=== PATIENT | female | born 1950 | race Caucasian/White ===

== ENCOUNTER 2025-06-29 15:06 | Outpatient (AMB) | payer MEDICARE, SELFPAY ==
--- OUTSIDE RECORDS SUMMARY | 2016-04-01 04:09 | XMS_ITS | Continuity of Care Document ---
Author Organization [facility] Address [address] [place] [address] Phone Care Team Providers Care Ophthalmic Surgeon Name Role Phone Tracy Law MD, Sarita Unavailable Unava ilable Allergies, Adverse Reactions, Alerts Substance Reaction Status Criticality No Known Allergies Active No Inform ation Medications Medication Instructions Dosage Effective Dates (start - stop) Status Comments Lidoderm 5 % (700 mg/patch) adhesive patch apply 1 patch by transdermal route every day (May wear up to 12hours.) 1.00 patch - Active hydrocodone 7.5 mg-acetaminophen 325 mg tablet take 1 tablet by ORAL route every 6 hours as needed for pain 1 tablet - Active Medrol (Colin) 4 mg tablets in a dose pack take by Oral route taper over 6 days Not Available - Active levothyroxine 50 mcg tablet take 1 tablet by oral route every day 50 MCG - Active fluoxetine 20 mg tablet take 1 tablet by oral route every day in the morning 20 MG - Active simvastatin 10 mg tablet take 1 tablet by oral route every day in the evening 10 MG - Active Procedures Procedure Date Offic/outpt E&m Estab Low-mod 5 Mri Lumbar Wo Then W/contrast; 15 Harshad-base MR contrast NOS,1ml Prohance Rad Exam Spine Lumbosacral; W/ 15 Offic/outpt E&m New Mod Sever 5 Advance Directives Directive Yes / No Effective Date File Name No Information Encounters Encounter Description Practice Location Reason(s) For Visit Diagnoses Date Provider Providers Copied on Encounter [facility], [address] [address], [place], [place], [id number], [place] tel:[phone] [facility] No Information 6 Tracy Thanh Sarita. [address], [place], [place], [id number], [place]. tel:[phone] Offic/outpt E&m Estab Low-mod [facility], [address] [address], [place], [place], [id number], [place] tel:[phone] [facility] lumbar spine pain (chief complaint) Low back painDDD (degenerative disc disease), lumbarHistory of lumbar fusion 8 5 Tracy Thanh Sarita. [address], [place], [place], [id number], [place]. tel:[phone] Referring Provider: Sarita Law, [address], [place], [address] . tel:[phone] [facility], [address], [id number], [place] tel:[phone] [facility] No Information 5 Tracy Thanh Sarita. [address], [place], [place], [address], [place]. tel:[phone] Referring Provider: Sarita Law, [address], [place], [address] . tel:[phone] Offic/outpt E&m New Mod Sever [facility], [address] [address], [place], [place], [id number], [place] tel:[phone] [facility] lumbar spine pain (chief complaint) Low back painDDD (degenerative disc disease), lumbarHistory of lumbar fusion Feb0 3-201 5 Tracy Thanh Sarita. [address], [place], [place], [id number], [place]. tel:[phone] Referring Provider: Sarita Law, [address] , [place], [address] . tel:[phone] Family History Family Member Type Diagnosis Age At Onset Father Problem (finding) Arthritis Mother Problem (finding) osteoporosis Mother Problem (finding) depression Mother Problem (finding) Arthritis Payers Payer name Insurance type Covered alliance party ID [place]) Medicare Part B [id number] [facility] [id number] Social History Type Description Quantity Date Captured Comments Sex Female Smoking Status No Information Chief Complaint And Reason For Visit No Information Reason For Referral Reason For Referral No Information Plan Of Treatment Date Type Action Status Referral Ordered: Mri Lumbar Wo Then W/contrast; Appointment date/timeframe: 11/10/2014 ordered Referral Ordered: Rad Exam Spine Lumbosacral; W/ ordered History Of Present Illness Encounter Date Complaint History Of Prese nt Illness lumbar spine pain This 64 year o ld female presents for lumbar spine pain. She is here to discuss test results on her MRI. Severity level is 7. The problem is fluctuating. It occurs persistently. Location of pain is lower back. Pain is radiated to the right hip.The patient describes the pain as an ache and sharp. Context: no injury. Symptoms are aggravated by daily activities, sitting and walking. Symptoms are relieved by over the counter medication: ibuprofen and pain meds/drugs. Additional information: Patient does report some numbness in the right lower extremity off/on. Patient is wanting Hydrocodone refilled today. lumbar spine pain This 64 year o ld female presents for lumbar spine pain. Onset: 1 week ago. Severity level is 7. The problem is worsening. It occurs persistently. Location of pain is lower back.There is no radiation of pain. The patient describes the pain as an ache and sharp. Context: no injury. Symptoms are aggravated by daily activities, sitting and walking. Symptoms are relieved by over the counter medication: ibuprofen. Additional information: Patient has had issues with her back in the past. She had surgery done in 2008 where they put pins in her lumbar spine. She has not had any treatment or imaging since 2008 after surgery. She currently on takes OTC medicatios for her pain, which is not helping. She denies any numbness or tingling. Functional Status Date Functional Assessmen t No Information Instructions Date Instruction Additional Infor mation No Information Assessments Type Assessment Date No Information Patient Care Teams Name Effective Dates (start - stop) Status Members No Information
--- NOTE | 2025-06-29 15:17 | A.OFFPC_ITS ---
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: No Accompanied by: Self / Same As Patient Allergies No Known Allergies Allergy (Verified 06/29/25 15:19) Tobacco use date assessed: 06/29/25 Fall risk assessment: No Falls in past year Last assessed Fall Risk: 06/29/25 Dental Screening Dental Screen Date: 06/29/25 Did you have a dental visit in the last 12 months?: Yes Did you have a dental problem in the last 6 months where you did not have access to dental care?: No Was dental information given to patient?: Patient has dentist HPI HPI Comments History of Present Illness Details History of Present Illness The patient is a 75-year-old female presenting with elevated blood pressure and concerns about obstructive sleep apnea. Essential Hypertension: - The patient has a history of low blood pressure, but recently noticed elevated readings in the 140s and 150s mmHg, starting about two months ago. - No associated symptoms such as chest p ain, headaches, nausea, vomiting, or dizziness were reported. - The patient is concerned about the imp act of aripiprazole on blood pressure. Obstructive Sleep Apnea: - The patient reports snoring, waking up with difficulty breathing, and feeling fatigued during the day. - A home sleep study has been planned to confirm the diagnosis. Depression: - The patient is currently taking aripip razole for depression and anxiety but has not seen a therapist in three years. - The patient previously took fluoxetine but switched due to ineffectiveness. Hypothyroidism: - The patient is on levothyroxine therap y, and thyroid function tests are planned to ensure adequate control. Review of Systems - Cardiovascular: Denies chest pain, hea daches, nausea, vomiting, dizziness. - Respiratory: Reports snoring, difficul ty breathing upon waking, and daytime fatigue. 10-point ROS reviewed and negative excep t as noted in HPI Past Medical History - Depression, treated with aripiprazole. - Hypothyroidism, treated with levothyro xine. Health Maintenance - Pneumococcal vaccination discussed for preventative care. - Home sleep study planned for obstructi ve sleep apnea evaluation. Physical Exam General: Well-appearing, in no acute distress. Vital signs: Blood pressure noted to be elevated at 146/86. HEENT: Normocephalic, atraumatic. PERRLA, EOMI. Conjunctiva clear, sclera anicteric. Oropharynx clear, mucous membranes moist. TMs intact bilaterally. Neck: Supple, no lymphadenopathy, no thyromegaly, no JVD or carotid bruits. Cardiovascular: RRR, normal S1/S2, no murmurs, rubs, or gallops. Peripheral pulses 2+ and symmetric. No edema. Respiratory: Lungs clear to auscultation bilaterally, no wheezes, rales, or rhonchi. Normal effort. Abdomen: Soft, non-tender, non-distended. Normoactive bowel sounds. No hepato splenomegaly, no masses. MSK: Full range of motion, no joint swelling or deformity. Normal gait. Skin: Warm, dry, intact. No rashes, lesions, or pallor. [place] complexion noted. Neuro: Alert and oriented x3. Cranial nerves II-XII intact. Strength 5/5 throughout. Sensation intact. Reflexes 2+ symmetric. Normal coordination and gait. Psych: Appropriate mood and affect. Normal judgment and insight. Reports taking aripiprazole for depression and anxiety. Plan 1. Essential Hypertension - Plan to monitor blood pressure closely and consider medication adjustment if necessary. - Blood work including CBC, comprehensiv e metabolic panel, and thyroid function tests ordered to assess overall health and potential contributing factors. 2. Obstructive Sleep Apnea - Home sleep study arranged to confirm d iagnosis and assess severity. - Referral to seo specialist for further management if sleep study is positive. 3. Depression - Consideration of alternative medicatio ns due to potential impact of aripiprazole on blood pressure. - Referral to a therapist for counseling and further management of depression and anxiety. 4. Hypothyroidism - Thyroid function tests ordered to ensu re adequate control with current levothyroxine therapy. Discussion Notes I discussed with the patient the likelihood of obstructive sleep apnea and the need for a home sleep study to confirm the diagnosis. We also talked about the potential impact of aripiprazole on blood pressure and the possibility of adjusting medications. I recommended follow-up appointments to monitor blood pressure and review test results. The patient was informed about the referral process for a seo specialist if the sleep study is positive. Patient was informed and verbally consented to the use of an ambient scribe for clinic note documentation during this visit. Patient Instructions - Monitor your blood pressure regularly and keep a log of the readings. - Complete the home sleep study as sched uled and await further instructions based on the results. - Follow up with the therapist for couns eling sessions. - Attend follow-up appointments to [facility] blood pressure management and review test results. [facility] Medical History (Updated 06/29/25 @ 15:37 by Armando Jean MD) Fatigue Family History (Updated 06/29/25 @ 15:22 by Abebe Miranda MA) Father No problems noted. Mother No problems noted. Social History (Updated 06/29/25 @ 15:23 by Abebe Miranda MA) Housing: House Alcohol intake: current Alcohol intake frequency: does not drink Patient Tobacco Use Status: Never used Tobacco service: No Current occupational status: retired Cognitive needs: No Hearing needs: No Vision needs: Yes (rs glasses) Questionnaire PHQ-9 Over the last 2 weeks, how often have you been bothered by any of the following problems? 1. Little interest or pleasure in doing things: not at all 2. Feeling down, depressed, or hopeless: not at all 3. Trouble falling or staying asleep, or sleeping too much: several days 4. Feeling tired or having little energy: several days 5. Poor appetite or overeating: not at all 6. Feeling bad about yourself - or that you are a failure or have let yourself or your family down: not at all 7. Trouble concentrating on things, such as reading the newspaper or watching television: not at all 8. Moving or speaking so slowly that other people could have noticed. Or the opposite - being so fidgety or restless that you have been moving around a lot more than usual: several days 9. Thoughts that you would be better off or of hurting yourself in some way: not at all Total score: 3 Depression Screening Interpretation: Negative Depression Screening Done: Yes Source: Developed by Drs. Shubham Burgos, Hansa Garza, Toy Dutta and colleagues, with an educational mario from [employer]. Thrive Questionnaire Date Thrive assessed: 06/29/25 I am a: Patient What is your living situation today?: I have a steady place to live Within the past 12 months, did the food you bought not last and you didn't have the money to get more?: Never true Within the past 12 months, did you worry whether your food would run out before you got money to buy more?: Never true Do you have trouble paying for medicines?: No Do you have trouble getting transportation to medical appointments?: No Do you have trouble paying your heating and electricity bill?: No Do you have trouble taking care of your child, family member or friend?: No Are you currently unemployed and looking for a job?: No Are you interested in more education?: No Please select the resources that you would like help with: None Currently or been in a relationship where the following occur: No concerns reported THRIVE Score: 0 AUDIT C Alcohol Use Questionnaire (AUDIT-C) 1. How often do you have a drink containing alcohol?: Never 3. How often do you have six or more drinks on one occasion?: Never Total Score: 0 SILVANO-7 AMB Questionnaire SILVANO-7 Date SILVANO - 7 assessed: 06/29/25 Feeling nervous, anxious, or on edge: 1 = Several days Not being able to stop or control worryin = Not at all Worrying too much about different things: 1 = Several days Trouble relaxin = Several days Being so restless that it is hard to sit still: 1 = Several days Becoming easily annoyed or irritable: 1 = Several days Feeling afraid as if something awful might happen: 1 = Several days Total SILVANO-7 score (0-4 normal; 5-9 mild; 10-14 moderate; 15-21 severe): 6 Source: Developed by Drs. Shubham Burgos, Hansa Garza, Toy Dutta and colleagues, with an educational mario from [employer]. Physical exam (Primary Care) Vital Signs: Last Vital Signs Temp 97.9 F 06/29/25 15:18 Pulse 77 06/29/25 15:18 Resp 16 06/29/25 15:18 BP 146/86 H 06/29/25 15:18 Pulse Ox 98 06/29/25 15:18 Oxygen Delivery Method Room Air 06/29/25 15:18 BMI result Body Mass Index 20.4 Tobacco/Smoking Status: Tobacco use Status Tobacco use date assessed 06/29/25 06/29/25 15:27 Patient Tobacco Use Status Never used Tobacco 06/29/25 15:27 PHQ-9: PHQ-9 Score PHQ-9: Total score 3 06/29/25 15:27 Depression Screening Interpretation: Negative Thrive Assessment: Date of Thrive Assessment Date Thrive assessed 06/29/25 06/29/25 15:27 Currently or been in a relationship where the following occur: No concerns reported Coding Level of Care Code New Pt Level 3 (19209) Diagnoses Encounter to establish care with new provider Z76.89 Encounter for screening, unspecified Z13.9 Counseling, unspecified Z71.9 Acquired hypothyroidism E03.9 Hypothyroidism type: acquired Elevated blood pressure reading R03.0 Snoring R06.83 Fatigue R53.83 Assessment & Plan Assessment & Plan (1) Encounter to establish care with new provider: Code(s): Z76.89 - Persons encountering health services in other specified circumstances (2) Encounter for screening, unspecified: Code(s): Z13.9 - Encounter for screening, unspecified (3) Counseling, unspecified: Code(s): Z71.9 - Counseling, unspecified (4) Hypothyroid: Code(s): E03.9 - Hypothyroidism, unspecified Qualifiers: Hypothyroidism type: acquired Qualified Code(s): E03.9 - Hypothyroidism, unspecified (5) Elevated blood pressure reading: Code(s): R03.0 - Elevated blood-pressure reading, without diagnosis of hypertension (6) Snoring: Code(s): R06.83 - Snoring (7) Fatigue: Code(s): R53.83 - Other fatigue Category: Medical Plan Orders: Orders Comprehensive Met. Panel Today Z13.9 - Encounter for screening, unspecified, Z76.89 - Persons encountering health services in other specified circumstances Hepatitis B Surface Antibody Today Z13.9 - Encounter for screening, unspecified, Z76.89 - Persons encountering health services in other specified circumstances Hepatitis C Antibody Today Z13.9 - Encounter for screening, unspecified, Z76.89 - Persons encountering health services in other specified circumstances Lipid Panel Today Z13.9 - Encounter for screening, unspecified, Z76.89 - Persons encountering health services in other specified circumstances Vitamin D 1,25 dihydroxy Today Z13.9 - Encounter for screening, unspecified, Z76.89 - Persons encountering health services in other specified circumstances Complete Blood Count Auto Diff Today Z13.9 - Encounter for screening, unspecified, Z76.89 - Persons encountering health services in other specified circumstances Hemoglobin A1c Today Z13.9 - Encounter for screening, unspecified, Z76.89 - Persons encountering health services in other specified circumstances Hepatitis B Surface Antigen Today Z13.9 - Encounter for screening, unspecified, Z76.89 - Persons encountering health services in other specified circumstances HIV Ab/Ag Today Z13.9 - Encounter for screening, unspecified, Z76.89 - Persons encountering health services in other specified circumstances UA CC w/rflx Micro + Cult Today Z13.9 - Encounter for screening, unspecified, Z76.89 - Persons encountering health services in other specified circumstances Vitamin B12 and Folate Today Z13.9 - Encounter for screening, unspecified, Z76.89 - Persons encountering health services in other specified circumstances TSH reflex Free T4 Today Z13.9 - Encounter for screening, unspecified, Z76.89 - Persons encountering health services in other specified circumstances RT home sleep study Today R06.83 - Snoring, R53.83 - Other fatigue Referrals Behavioral Health Referral F41.8 - Other specified anxiety disorders
[2025-06-29 15:18] VITALS: BP 146/86; PULSE 77; RESP 16; TEMP 36.6; O2SAT 98; BMI 20.4
--- OUTSIDE RECORDS SUMMARY | 2025-06-29 17:36 | XMS_ITS | Clinical Summary ---
Author Organization [facility] Address [address] [place] [address] Care Team Providers Care Healthcare Science Specialist Name Role Phone Mady Morel Primary Care Provider [phone] Allergies No known active allergies Medications * This document contains information received from the source organization and may not represent a complete record from that organization. FLUoxetine (PROzac) 40 MG Oral Capsule Take 2 (two) capsules by mouth daily for 90 days. 180 capsule 2 Active QUEtiapine (SEROquel) 25 MG Oral TabletIndication s:Mixed obsessional thoughts and acts Take 2 (two) tablets by mouth in the morning and 2 (two) tablets before bedtime. Take two tablets in the morning and two tablets. 120 tablet 2 2 Active Active Problems Problem Noted Date Diagnosed Date Mixed obsessional thoughts and acts 08/23/2019 Social History Tobacco Use Types Packs/Day Years Used Date Smoking Tobacco: Never Assessed Comments Unknown Sex and Gender Information Value Date Recorded Sex Assigned at Female 01/19/2021 12:45 PM EDT Legal Sex Female 10:42 AM EST Gender Identity Female 04/17/2020 3:20 PM EDT Sexual Orientation Not on file Last Filed Vital Signs Vital Sign Reading Time Taken Comments Blood Pressure 106/70 11/11/2018 11:20 AM EST Pulse 91 11/11/2018 11:20 AM EST Temperature - - Respiratory Rate - - Oxygen Saturation - - Inhaled Oxygen Concentration - - Weight 57.2 kg (126 lb) 02/08/2019 10:33 AM EDT Height 160 cm (5' 3 ) 02/08/2019 10:33 AM EDT Body Mass Index 22.32 02/08/2019 10:33 AM EDT Plan of Treatment Health Maintenance Due Date Last Done Comments Hepatitis C Screening 1950 DTaP,Tdap,and Td Vaccines (1 - Tdap) 1967 Lipid Profile 1993 Pneumococcal Vaccine (50+ yrs) (1 of 1 - PCV) 1998 Zoster Vaccine (1 of 2) 1998 Dexa 2013 Medicare Initial AWV [id number] 05/07/2014 RSV Vaccine (1 - 1-dose 75+ series) 2023 Influenza Vaccine (#1) 2025 , 10/22/2021, 07/31/2021, Additional history exists SARS-CoV-2 (COVID-19) (2024- season) 2025 07/23/2022, 01/02/2022, 07/31/2021, Additional history exists HIB Vaccine Aged Out No longer eligi ble based on patient's age to complete this topic HPV Vaccine Aged Out No longer eligi ble based on patient's age to complete this topic Hepatitis A Vaccine Aged Out No longe r eligible based on patient's age to complete this topic Hepatitis B Vaccine Aged Out No longe r eligible based on patient's age to complete this topic Meningococcal ACWY Aged Out No longer eligible based on patient's age to complete this topic Meningococcal B Aged Out No longer el igible based on patient's age to complete this topic Polio Vaccine Aged Out No longer elig ible based on patient's age to complete this topic Rotavirus Vaccine Aged Out No longer eligible based on patient's age to complete this topic [place] [id number] [facility] [employer] Care Teams Healthcare Science Specialist Relationship Specialty Start Date End Date Mady Morel PCP - General Family Medicine 09/08/17
== END 2025-06-29 15:49 | disposition home or self-care (01) ==
LOC: HO.HMCFMS 15:07
PROVIDERS: Visit Provider Student in an Organized Health Care Education/Training Program
DX: E03.9 Hypothyroidism, unspecified (principal); R03.0 Elevated blood-pressure reading, without diagnosis of hypertension; R06.83 Snoring; R53.83 Other fatigue

== ENCOUNTER 2025-06-29 15:06 | Outpatient (REF) | payer MEDICARE, SELFPAY ==
[2025-06-29 18:26] LABS: Appearance Urine Clear; Glucose Urine UA Negative (Negative); PH 7.0 (5.0-9.0); Specific Gravity - Urine 1.010 (1.005-1.025); UMIC TRIGGER UACC YES
[2025-06-29 18:28] LABS: Hematocrit 36.8 % (37.0-47.0); Hemoglobin 12.5 g/dl (12.0-16.0); Imm Gran Abs Auto 0.03 X10*3/uL (0.00-0.03); Imm Gran Pct Auto 0.3 % (0.0-0.4); Lymphocytes Absolute Auto 5.1 X10*3/uL (1.2-4.9); MANUAL DIFF FLAG SCAN; Mean Corpuscular HGB Conc 34.0 g/dl (31.0-35.0); Mean Corpuscular Hemoglobin 29.8 pg (27.0-33.0); Mean Corpuscular Volume 87.6 fL (80.0-98.0); NRBC Abs Auto 0.000 X10*3/uL (0.0-0.012); NRBC Pct Auto 0.0 /100WBC (0.0-0.2); Platelet Count 265 X10*3/uL (160-400); Red Blood Count 4.20 X10*6/uL (4.20-5.50); SCAN SMEAR FLAG 1; White Blood Count 10.9 X10*3/uL (4.8-10.8)
[2025-06-29 19:16] LABS: Alanine Aminotransferase 26 U/L (0-31); Albumin Level 4.8 g/dL (3.5-5.0); Alkaline Phosphatase 75 U/L (39-117); Anion Gap 13 (12-20); Aspartate Amino Transferase 28 U/L (5-31); Blood Urea Nitrogen 8 mg/dL (9-16); Calcium 9.7 mg/dL (8.4-10.2); Carbon Dioxide 27 mmol/L (22-29); Chloride 98 mmol/L (96-108); Cholesterol 225 mg/dL (<200); Estimated Glomerular Filt Rate > 60; HDL Cholesterol 83 mg/dL (>40); Potassium 4.5 mmol/L (3.3-5.1); Sodium 133 mmol/L (135-145); Total Protein 6.9 g/dL (6.5-8.0); Triglycerides 73 mg/dL (<150)
[2025-06-29 19:50] LABS: Folate 18.7 ng/mL (> or = 4.0); Vitamin B12 575 pg/mL (200-900)
[2025-06-30 04:55] LABS: HBS Num1 0.39 mIU/mL (0-7.99); HBsAGNum1 0.30 S/CO (0.00-0.99); HIV Num 1 0.05 S/CO (0.00-0.99); Hepatitis B Surface Antigen Negative (Negative); ~HepC Num1 0.05 S/CO (0.00-0.79); ~Hepatitis B Surface Antibody NONREACTIVE (Nonreactive); ~Hepatitis C Antibody Nonreactive (Nonreactive)
[2025-06-30 05:26] LABS: Total Hemoglobin (HGBA1C) 3285.0317 umol/L
[2025-07-04 18:08] LABS: VITAMIN D (1,25 OH) D3 50 pg/mL; Vit D (1,25-Dihydroxy) Total 50 pg/mL (18-72); Vitamin D (1,25 OH) D2 <8 pg/mL
== END 2025-06-29 15:07 | disposition home or self-care (01) ==
LOC: HO.HKASLDS 15:06
PROVIDERS: Visit Provider Student in an Organized Health Care Education/Training Program
DX: Z76.89 Persons encountering health services in other specified circumstances (principal); R06.83 Snoring; Z11.4 Encounter for screening for human immunodeficiency virus [HIV]; Z13.1 Encounter for screening for diabetes mellitus; R53.83 Other fatigue; F41.8 Other specified anxiety disorders; E03.9 Hypothyroidism, unspecified; R03.0 Elevated blood-pressure reading, without diagnosis of hypertension
CPT/HCPCS: 36415; 80053; 80061; 81001; 82607; 82652; 82746; 83036; 84443; 85025; 86706; 86803; 87340; 87389; 99202

== ENCOUNTER 2025-07-14 08:12 | Outpatient (AMB) | payer MEDICARE, SELFPAY ==
--- NOTE | 2025-07-14 08:14 | A.OFFPC_ITS ---
Vital Signs 07/14/25 08:15 Height 5 ft 2.99 in Weight 115 lb BMI 20.4 BP 137/66 Blood Pressure Location Rt brachial Position Sitting Respiration 16 Pulse 66 Pulse Source Pulse Oximeter Temp 97.5 F Temp Source Oral Pulse Oximetry (%) 98 Oxygen Delivery Method Room Air Intake Visit Reasons: 2 wk f/u Intake Note: high BP [employer] Required: No Accompanied by: Self / Same As Patient Allergies No Known Allergies Allergy (Verified 07/14/25 08:15) Tobacco use date assessed: 06/29/25 Fall risk assessment: No Falls in past year Last assessed Fall Risk: 06/29/25 Dental Screening Dental Screen Date: 06/29/25 Did you have a dental visit in the last 12 months?: Yes Did you have a dental problem in the last 6 months where you did not have access to dental care?: No Was dental information given to patient?: Patient has dentist HPI HPI Comments History of Present Illness Details History of Present Illness The patient is a 75-year-old female presenting with concerns about obstructive sleep apnea and elevated blood pressure. Obstructive Sleep Apnea: - The patient has a history of obstructi ve sleep apnea, with a home sleep study ordered but not yet conducted. - She experiences insomnia, waking up fo r hours at night, and has been using melatonin 10 mg for management. - Her is concerned due to episod es of apnea during sleep. Hypertension: - The patient has a history of low blood pressure but has recently noted elevated readings, with occasional spikes over 150 mmHg, likely related to stress. - She is not currently on antihypertensi ve medication and manages her blood pressure through relaxation techniques. - A blood pressure log has been recommen ded to monitor fluctuations. Hypothyroidism: - The patient is on levothyroxine for hy pothyroidism, with recent lab results indicating stable thyroid function. Prediabetes: - The patient's hemoglobin A1c is 5.7%, indicating prediabetes. - She has been advised to monitor carboh ydrate and sugar intake to manage her blood glucose levels. Hyperlipidemia: - The patient has elevated cholesterol l evels, with total cholesterol at 225 mg/dL and LDL at 128 mg/dL. - A referral to a electric motor assembler has been made to address dietary modifications. Dermatitis: - The patient reports redness and drynes s under her nose, likely due to dermatitis, and has been prescribed hydrocortisone for management. Review of Systems - Cardiovascular: Reports elevated blood pressure readings occasionally exceeding 150 mmHg. Denies chest pain or palpitations. - Respiratory: Reports insomnia and epis odes of apnea during sleep. Denies cough or wheezing. - Endocrine: Reports stable thyroid func tion on levothyroxine. Denies symptoms of hyperthyroidism. - Dermatological: Reports redness and dr yness under the nose, likely dermatitis. - Genitourinary: Reports irritation and trace blood in urine. Denies dysuria or frequency. 10-point ROS reviewed and negative excep t as noted in HPI Past Medical History - Obstructive Sleep Apnea - Hypertension - Hypothyroidism - Prediabetes - Hyperlipidemia Health Maintenance - Vaccination review for travel to [facility], including consideration of hepatitis A vaccination. - Dietary modifications recommended for hyperlipidemia management. - Monitoring of blood pressure with a [facility] log for hypertension management. Physical Exam General: Well-appearing, in no acute distress. Vital signs: Blood pressure 137/66. HEENT: Normocephalic, atraumatic. PERRLA, EOMI. Conjunctiva clear, sclera anicteric. Oropharynx clear, mucous membranes moist. TMs intact bilaterally. Noted redness and dryness under the nose, likely due to dermatitis or allergies. Neck: Supple, no lymphadenopathy, no thyromegaly, no JVD or carotid bruits. Cardiovascular: RRR, normal S1/S2, no murmurs, rubs, or gallops. Peripheral pulses 2+ and symmetric. No edema. Respiratory: Lungs clear to auscultation bilaterally, no wheezes, rales, or rhonchi. Normal effort. Abdomen: Soft, non-tender, non-distended. Normoactive bowel sounds. No hepatosplenomegaly, no masses. MSK: Full range of motion, no joint swelling or deformity. Normal gait. Skin: Warm, dry, intact. No rashes, lesions, or pallor. Neuro: Alert and oriented x3. Cranial nerves II-XII intact. Strength 5/5 throughout. Sensation intact. Reflexes 2+ symmetric. Normal coordination and gait. Psych: Appropriate mood and affect. Normal judgment and insight. Plan 1. Obstructive Sleep Apnea - A home sleep study has been ordered to confirm the diagnosis of obstructive sleep apnea. - The patient is advised to continue usi ng melatonin for insomnia management. 2. Hypertension - The patient is advised to monitor bloo d pressure at home and maintain a log for two weeks. - Relaxation techniques are recommended to manage stress-induced blood pressure spikes. 3. Hypothyroidism - Continue current levothyroxine dosage as thyroid function is stable. 4. Prediabetes - The patient is advised to monitor carb ohydrate and sugar intake to manage blood glucose levels. 5. Hyperlipidemia - Referral to a electric motor assembler for dietary modifications to manage elevated cholesterol levels. 6. Dermatitis - Prescribed hydrocortisone for nasal de rmatitis, to be used for seven days. Discussion Notes I discussed with the patient the importance of conducting a home sleep study to confirm obstructive sleep apnea and advised continuing melatonin for insomnia management. We reviewed her blood pressure management, emphasizing the use of relaxation techniques and maintaining a blood pressure log. I explained the need for dietary modifications to manage hyperlipidemia and prediabetes, and referred her to a electric motor assembler. We also discussed the use of hydrocortisone for dermatitis I advised on vaccination considerations for her upcoming travel to [place]. Patient was informed and verbally consented to the use of an ambient scribefor clinic note documentation during this visit. Patient Instructions - Continue using melatonin for sleep man agement. - Monitor blood pressure at home and william mellissain a log for two weeks. - Practice relaxation techniques to joann ge stress. - Follow dietary recommendations to joann ge cholesterol and blood sugar levels. - Use hydrocortisone for nasal dermatiti s as prescribed. - Consider vaccination for hepatitis A b efore traveling to [place]. Total time spent caring for the patient today was 30 minutes. This includes time spent before the visit reviewing the chart, time spent documenting, and time spent reviewing laboratory results, diagnostic imaging, medications, performing a medically necessary evaluation, counseling on diagnoses, care coordination. [facility] Medical History (Updated 07/14/25 @ 08:42 by Armando Jean MD) Hyperlipidemia Fatigue Family History Father No problems noted. Mother No problems noted. Social History Housing: House Alcohol intake: current Alcohol intake frequency: does not drink Patient Tobacco Use Status: Never used Tobacco service: No Current occupational status: retired Cognitive needs: No Hearing needs: No Vision needs: Yes (rs glasses) Questionnaire PHQ-9 Over the last 2 weeks, how often have you been bothered by any of the following problems? 1. Little interest or pleasure in doing things: not at all 2. Feeling down, depressed, or hopeless: not at all 3. Trouble falling or staying asleep, or sleeping too much: several days 4. Feeling tired or having little energy: several days 5. Poor appetite or overeating: not at all 6. Feeling bad about yourself - or that you are a failure or have let yourself or your family down: not at all 7. Trouble concentrating on things, such as reading the newspaper or watching television: not at all 8. Moving or speaking so slowly that other people could have noticed. Or the opposite - being so fidgety or restless that you have been moving around a lot more than usual: several days 9. Thoughts that you would be better off or of hurting yourself in some way: not at all Total score: 3 Depression Screening Interpretation: Negative Depression Screening Done: Yes Source: Developed by Drs. Shubham Burgos, Hansa Garza, Toy Dutta and colleagues, with an educational mario from [employer]. Thrive Questionnaire Date Thrive assessed: 06/29/25 I am a: Patient What is your living situation today?: I have a steady place to live Within the past 12 months, did the food you bought not last and you didn't have the money to get more?: Never true Within the past 12 months, did you worry whether your food would run out before you got money to buy more?: Never true Do you have trouble paying for medicines?: No Do you have trouble getting transportation to medical appointments?: No Do you have trouble paying your heating and electricity bill?: No Do you have trouble taking care of your child, family member or friend?: No Are you currently unemployed and looking for a job?: No Are you interested in more education?: No Please select the resources that you would like help with: None Currently or been in a relationship where the following occur: No concerns reported THRIVE Score: 0 AUDIT C Alcohol Use Questionnaire (AUDIT-C) 1. How often do you have a drink containing alcohol?: Never 3. How often do you have six or more drinks on one occasion?: Never Total Score: 0 SILVANO-7 AMB Questionnaire SILVANO-7 Date SILVANO - 7 assessed: 06/29/25 Feeling nervous, anxious, or on edge: 1 = Several days Not being able to stop or control worryin = Not at all Worrying too much about different things: 1 = Several days Trouble relaxin = Several days Being so restless that it is hard to sit still: 1 = Several days Becoming easily annoyed or irritable: 1 = Several days Feeling afraid as if something awful might happen: 1 = Several days Total SILVANO-7 score (0-4 normal; 5-9 mild; 10-14 moderate; 15-21 severe): 6 Source: Developed by Drs. Shubham Burgos, Hansa Garza, Toy Dutta and colleagues, with an educational mario from [employer]. Physical exam (Primary Care) Vital Signs: Last Vital Signs Temp 97.5 F 07/14/25 08:15 Pulse 66 07/14/25 08:15 Resp 16 07/14/25 08:15 BP 137/66 07/14/25 08:15 Pulse Ox 98 07/14/25 08:15 Oxygen Delivery Method Room Air 07/14/25 08:15 BMI result Body Mass Index 20.4 Tobacco/Smoking Status: Tobacco use Status Tobacco use date assessed 06/29/25 07/14/25 08:16 Patient Tobacco Use Status Never used Tobacco 07/14/25 08:16 PHQ-9: PHQ-9 Score PHQ-9: Total score 3 07/14/25 08:16 Depression Screening Interpretation: Negative Thrive Assessment: Date of Thrive Assessment Date Thrive assessed 06/29/25 07/14/25 08:16 Currently or been in a relationship where the following occur: No concerns reported Coding Level of Care Code Est Pt Level 4 (32700) Diagnoses Hyperlipidemia E78.5 Sleep apnea G47.30 Elevated blood pressure reading R03.0 Hypothyroidism E03.9 Prediabetes R73.03 Dermatitis L30.9 Assessment & Plan Assessment & Plan (1) Hyperlipidemia: Code(s): E78.5 - Hyperlipidemia, unspecified Category: Medical (2) Sleep apnea: Code(s): G47.30 - Sleep apnea, unspecified (3) Elevated blood pressure reading: Code(s): R03.0 - Elevated blood-pressure reading, without diagnosis of hypertension (4) Hypothyroidism: Code(s): E03.9 - Hypothyroidism, unspecified (5) Prediabetes: Code(s): R73.03 - Prediabetes (6) Dermatitis: Code(s): L30.9 - Dermatitis, unspecified Plan Medications: New hydrocortisone 1% 1 appl topical BID 28.35 grams 0RF
[2025-07-14 08:15] VITALS: BP 137/66; PULSE 66; RESP 16; TEMP 36.4; O2SAT 98; BMI 20.4
== END 2025-07-14 08:41 | disposition home or self-care (01) ==
LOC: HO.HMCFMS 08:13
PROVIDERS: PCP Student in an Organized Health Care Education/Training Program; Visit Provider Student in an Organized Health Care Education/Training Program
DX: E78.5 Hyperlipidemia, unspecified (principal); G47.30 Sleep apnea, unspecified; R03.0 Elevated blood-pressure reading, without diagnosis of hypertension; E03.9 Hypothyroidism, unspecified; R73.03 Prediabetes; L30.9 Dermatitis, unspecified

== ENCOUNTER → 2025-07-14 08:12 | Outpatient (BNVA) | payer MEDICARE, SELFPAY | PROVIDERS: Visit Provider Student in an Organized Health Care Education/Training Program | DX: G47.30 Sleep apnea, unspecified (principal); I10 Essential (primary) hypertension; E03.9 Hypothyroidism, unspecified; R73.03 Prediabetes; E78.5 Hyperlipidemia, unspecified; L30.9 Dermatitis, unspecified; Z79.899 Other long term (current) drug therapy; Z13.31 Encounter for screening for depression | CPT/HCPCS: 96127; 99212 ==